=== PATIENT | male | born 1960 | race Caucasian/White ===

== ENCOUNTER 2025-03-04 06:10 | Day surgery (SDC) | payer MEDICARE, OTHER, SELFPAY ==
[2025-03-04] VITALS (10 sets, daily range): BP systolic 110–138; BP diastolic 63–93; BMI 28.2
[2025-03-04] MEDS: NORMOSOL-R/PLASMALYTE-A 1000 IV (07:20)
[2025-03-04] MEDS: ROXICODONE 5 MG PO (13:14)
== END 2025-03-04 14:11 | disposition home or self-care (01) ==
LOC: SDS 06:10
PROVIDERS: ATTENDING PHYSICIAN Otolaryngology Facial Plastic Surgery
DX: G47.33 Obstructive sleep apnea (adult) (pediatric) (principal)
CPT/HCPCS: 64582; 71045; C1767; C1778; C1787

== ENCOUNTER → 2025-07-15 08:38 | Outpatient (REF) | payer MEDICARE, OTHER, SELFPAY | LOC: DHSLP 08:38 | PROVIDERS: ATTENDING PHYSICIAN Internal Medicine Critical Care Medicine | DX: G47.33 Obstructive sleep apnea (adult) (pediatric) (principal); G47.61 Periodic limb movement disorder | CPT/HCPCS: 95810 ==